=== PATIENT | female | born 1975 ===

== ENCOUNTER 2022-11-21 12:05 | Outpatient (CLI) | payer OTHER | END 2022-11-21 12:06 | disposition home or self-care (01) | LOC: BICMAMMO 12:05 | PROVIDERS: ATTEND Physician Assistant | DX: Z12.31 Encounter for screening mammogram for malignant neoplasm of breast (principal); Z91.89 Other specified personal risk factors, not elsewhere classified | CPT/HCPCS: 77063; 77067 ==